=== PATIENT | female | born 1980 | race African-American/Black ===

== ENCOUNTER 2017-01-13 20:46 | Emergency (ER) | payer BC ==
[~2017-01-13] VITALS: Ht 172.7 cm; Wt 84.8 kg
[~2017-01-13 20:46] MED LIST: CEPHALEXIN500 MG PO; FLEXERIL PO; LORTAB 7.57.5 MG PO; NAPROSYN500 MG PO; ULTRAM50 M1 PO
[2017-01-13] MEDS ORDERED: ULTRAM50 M1 PO (22:48)
[2017-01-13] MEDS ORDERED: AMOXICILLIN500 MG PO (22:48)
[2017-01-13 23:13] VITALS: BP 144/85
== END 2017-01-13 23:13 | disposition home or self-care (01) | DRG 159 ==
LOC: ED 20:46
DX: K08.89 Other specified disorders of teeth and supporting structures (principal); F17.210 Nicotine dependence, cigarettes, uncomplicated; S02.5XXA Fracture of tooth (traumatic), initial encounter for closed fracture